=== PATIENT | male | born 1965 | race Caucasian/White ===

== ENCOUNTER 2018-11-16 11:50 | Emergency (ER) | payer OTHER ==
[~2018-11-16] VITALS: Ht 170.2 cm; Wt 84.4 kg
[~2018-11-16 11:50] MED LIST: [UNRECOGNIZED DRUG - REMARK]
[2018-11-16] MEDS ORDERED: MIGRANOW KIT50 MG MC (13:46)
[2018-11-16] MEDS ORDERED: PRIFTIN150 MG PO (13:47)
[2018-11-16] MEDS ORDERED: NABUMETONE750 MG (13:47)
[2018-11-16] MEDS ORDERED: REGLAN10 MG PO (15:25)
== END 2018-11-16 15:34 | disposition home or self-care (01) ==
LOC: ED 11:50
DX: G89.29 Other chronic pain (principal); R51 Headache; K74.60 Unspecified cirrhosis of liver; I10 Essential (primary) hypertension; Z86.19 Personal history of other infectious and parasitic diseases; F17.200 Nicotine dependence, unspecified, uncomplicated; Z79.899 Other long term (current) drug therapy
CPT/HCPCS: 96372; 99283-25; J1885

== ENCOUNTER 2019-05-20 09:47 | Emergency (ER) | payer OTHER ==
[~2019-05-20] VITALS: Ht 170.2 cm; Wt 84.4 kg
[~2019-05-20 09:47] MED LIST changes: +MIGRANOW KIT50 MG MC; +NABUMETONE750 MG; +PRIFTIN150 MG PO; +REGLAN10 MG PO
[2019-05-20] MEDS ORDERED: CYCLOBENZAPRINE10 MG PO (11:38)
== END 2019-05-20 11:50 | disposition home or self-care (01) ==
LOC: ED 09:47
DX: M54.42 Lumbago with sciatica, left side (principal); I10 Essential (primary) hypertension; G43.909 Migraine, unspecified, not intractable, without status migrainosus; F17.200 Nicotine dependence, unspecified, uncomplicated; Z79.899 Other long term (current) drug therapy
CPT/HCPCS: 99283

== ENCOUNTER 2019-05-24 08:01 | Emergency (ER) | payer OTHER ==
[~2019-05-24] VITALS: Ht 170.2 cm; Wt 77.1 kg
[~2019-05-24 08:01] MED LIST changes: +CYCLOBENZAPRINE10 MG PO
--- OUTSIDE RECORDS SUMMARY | 2019-05-24 08:04 | XMS ---
PreManage Notification: ELIANE PARHMA Security Crosstie Inspector Events No recent Security Events currently on file CRITERIA MET - [facility] - 2 Visits in 30 Days CARE PROVIDERS Primary Care Primary Care Current PHONE: Unknown Charla has no Care Guidelines for this patient. Jasmin VISIT COUNT (12 MO.) 3 [facility] TOTAL 3 NOTE: Visits indicate total known visits. ED/UCC VISIT TRACKING (12 MO.) 05/24/2019 08:02 [facility] TYPE: Emergency COMPLAINT: - LEFT LEG PAIN NON INJURY 05/20/2019 09:47 [facility] TYPE: Emergency COMPLAINT: - HIP PAIN NON INJURY DIAGNOSES: - Migraine, unspecified, not intractable, without status migrainosus - Lumbago with sciatica, left side - Essential (primary) hypertension - Nicotine dependence, unspecified, uncomplicated - Low back pain - Other intermodal customer service (current) drug therapy 11/16/2018 11:50 [facility] TYPE: Emergency COMPLAINT: - MEDICATION REFILL DIAGNOSES: - Essential (primary) hypertension - Other chronic pain - Other intermodal customer service (current) drug therapy - Personal history of other infectious and parasitic diseases - Nicotine dependence, unspecified, uncomplicated - Headache - Unspecified cirrhosis of liver INPATIENT VISIT TRACKING (12 MO.) No inpatient visits to display in this time frame [email or web address]
== END 2019-05-24 09:09 | disposition home or self-care (01) ==
LOC: ED 08:01
DX: M54.30 Sciatica, unspecified side (principal); I10 Essential (primary) hypertension; F17.200 Nicotine dependence, unspecified, uncomplicated
CPT/HCPCS: 96372; 99283; J1885

== ENCOUNTER 2019-05-24 15:57 | Emergency (ER) | payer OTHER ==
[~2019-05-24] VITALS: Ht 170.2 cm; Wt 77.1 kg
--- OUTSIDE RECORDS SUMMARY | 2019-05-24 16:00 | XMS ---
PreManage Notification: ELIANE PARHAM Security Associate Embalmer/Funeral Director Events No recent Security Events currently on file CRITERIA MET - [facility] - 2 Visits in 30 Days CARE PROVIDERS Primary Care Primary Care Current PHONE: Unknown Charla has no Care Guidelines for this patient. Jasmin VISIT COUNT (12 MO.) 4 [facility] TOTAL 4 NOTE: Visits indicate total known visits. ED/UCC VISIT TRACKING (12 MO.) 05/24/2019 15:58 [facility] TYPE: Emergency COMPLAINT: - POSSIBLE BROKEN HIP 05/24/2019 08:02 [facility] TYPE: Emergency COMPLAINT: - LEFT LEG PAIN NON INJURY 05/20/2019 09:47 [facility] TYPE: Emergency COMPLAINT: - HIP PAIN NON INJURY DIAGNOSES: - Migraine, unspecified, not intractable, without status migrainosus - Lumbago with sciatica, left side - Essential (primary) hypertension - Nicotine dependence, unspecified, uncomplicated - Low back pain - Other truck terminal manager (current) drug therapy 11/16/2018 11:[address] [facility] [place] TYPE: Emergency COMPLAINT: - MEDICATION REFILL DIAGNOSES: - Essential (primary) hypertension - Other chronic pain - Other truck terminal manager (current) drug therapy - Personal history of other infectious and parasitic diseases - Nicotine dependence, unspecified, uncomplicated - Headache - Unspecified cirrhosis of liver INPATIENT VISIT TRACKING (12 MO.) No inpatient visits to display in this time frame [email or web address]
== END 2019-05-24 16:20 | disposition home or self-care (01) ==
LOC: ED 15:57
DX: M54.31 Sciatica, right side (principal); Z76.5 Malingerer [conscious simulation]; I10 Essential (primary) hypertension; G43.909 Migraine, unspecified, not intractable, without status migrainosus; F17.200 Nicotine dependence, unspecified, uncomplicated; Z79.899 Other long term (current) drug therapy
CPT/HCPCS: 99283